=== PATIENT | female | born 1980 | race Two or more races ===

== ENCOUNTER 2021-07-23 00:02 | Emergency (ER) | payer MEDICAID ==
[~2021-07-23] VITALS: Ht 162.6 cm; Wt 72.7 kg
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
[2021-07-23] MEDS ORDERED: MONT10TA32 PO (01:30)
[2021-07-23] MEDS ORDERED: SIMV20TA PO (01:30)
[2021-07-23] MEDS ORDERED: BACL-11 PO (01:30)
[2021-07-23] MEDS ORDERED: TRAZ-251 PO (01:30)
[2021-07-23] MEDS ORDERED: omeprazole PO (01:30)
[2021-07-23] MEDS ORDERED: FLUO40CA26 PO (01:30)
[2021-07-23 01:52] LABS: BASOPHILS % (AUTO) 0.1 % (0-1); EOSINOPHILS % (AUTO) 0.1 % (0-6); HEMATOCRIT 38.7 % (35.0-45.0); HEMOGLOBIN 13.3 g/dl (12.0-16.0); LYMPHOCYTES # (AUTO) 1.4 X10'3 (1.1-4.8); LYMPHOCYTES % (AUTO) 12.2 % (21-51); MEAN CORPUSCULAR HEMOGLOBIN 32.6 PG (27.0-31.0); MEAN CORPUSCULAR HGB CONC 34.3 g/dL (33.0-36.5); MEAN CORPUSCULAR VOLUME 95.1 FL (78-98); MEAN PLATELET VOLUME 7.3 FL (7.4-10.4); MONOCYTES # (AUTO) 0.4 X10'3 (0-0.9); MONOCYTES % (AUTO) 3.4 % (2-12); NEUTROPHILS # (AUTO) 9.9 X10'3 (1.8-7.7); NEUTROPHILS % (AUTO) 84.2 % (42-75); PLATELET COUNT 250 X10'3 (140-440); RED BLOOD COUNT 4.07 X10'6 (4.20-5.60); RED CELL DISTRIBUTION WIDTH 12.6 % (11.5-14.5); WHITE BLOOD COUNT 11.7 X10'3 (4.5-11.0)
[2021-07-23 02:19] LABS: ALANINE AMINOTRANSFERASE 22 U/L (12-78); ALBUMIN/GLOBULIN RATIO 1.1 (1.1-1.5); ALKALINE PHOSPHATASE 67 IU/L (46-116); ANION GAP 18 (8-16); ASPARTATE AMINO TRANSFERASE 23 U/L (10-37); BILIRUBIN,TOTAL 0.5 MG/DL (0.1-1.0); BLOOD UREA NITROGEN 8 MG/DL (7-18); BUN/CREATININE RATIO 12.1 (6.6-38.0); CALCIUM 8.5 MG/DL (8.5-10.1); CHLORIDE 94 MMOL/L (99-107); CREATININE 0.66 MG/DL (0.40-0.90); ETHANOL 0.254 GM/DL (0.0-0.010); GLUCOSE 91 MG/DL (70-104); SODIUM 130 MMOL/L (135-145); TOTAL CARBON DIOXIDE 18.4 MMOL/L (24-32); TOTAL PROTEIN 7.8 G/DL (6.4-8.2); eGFR > 90 ML/MIN
[2021-07-23 02:23] LABS: POTASSIUM 2.8 MMOL/L (3.5-5.1)
--- NOTE | 2021-07-23 02:28 | NUR ---
Received critical K+ level of 2.[address] Urias was made aware.
[2021-07-23] MEDS ORDERED: potassium Cl 20 mEq SR tablet PO ONE ×2 (02:35→05:00)
[2021-07-23] MEDS ORDERED: magnesium oxide 400mg tablet PO ONE (02:35)
[2021-07-23] MEDS ORDERED: baclofen 10mg tablet PO PRN (02:45)
[2021-07-23 02:53] LABS: URINE HCG NEGATIVE (NEG)
[2021-07-23 02:54] LABS: CLARITY,URINE CLEAR (Clear); COLOR,URINE STRAW (Yellow); GLUCOSE, URINE NEGATIVE (Neg); KETONES,URINE NEGATIVE (Neg); LEUKOCYTE ESTERASE ,URINE NEGATIVE (Neg); NITRITES, URINE NEGATIVE (Neg); OCCULT BLOOD,URINE NEGATIVE (Neg); PROTEIN,URINE NEGATIVE (Neg); UA COLLECTION TYPE VOIDED; UROBILINOGEN,URINE 0.2 E.U/dL (0.2-1.0)
[2021-07-23 03:07] LABS: URINE AMPHETAMINE SCREEN NEGATIVE (Neg); URINE BARBITUATE SCREEN NEGATIVE (Neg); URINE BENZODIAZEPINES SCREEN NEGATIVE (Neg); URINE CANNABINOID SCREEN NEGATIVE (Neg); URINE COCAINE SCREEN NEGATIVE (Neg); URINE METHADONE SCREEN NEGATIVE (Neg); URINE OPIATE SCREEN NEGATIVE (Neg); URINE PHENCYCLIDINE SCREEN NEGATIVE (Neg)
--- NOTE | 2021-07-23 03:21 | NUR ---
Packet sent to [facility]
--- NOTE | 2021-07-23 03:49 | NUR ---
The patient is awake and resting on her bed.
[2021-07-23] MEDS: LORazepam 1 MG tablet PO PRN ×2 (04:38→20:08)
--- NOTE | 2021-07-23 04:47 | NUR ---
The patient is tearful and stated that her anxiety was very high. Vital signs HR 127 and BP 138/88. Dr. Urias made aware and orders received
--- NOTE | 2021-07-23 06:22 | NUR ---
The patient appears to be sleeping
[2021-07-23] MEDS: pantoprazole 40mg Tablet.DR PO SCH (07:29)
[2021-07-23] MEDS: FLUoxetine 20mg capsule PO SCH (07:29)
[2021-07-23] MEDS: atorvastatin 10mg tablet PO SCH (07:29)
--- NOTE | 2021-07-23 08:12 | NUR ---
The patient appears to be sleeping
--- NOTE | 2021-07-23 09:00 | NUR ---
[facility] evaluated the patient
--- NOTE | 2021-07-23 10:56 | NUR ---
The patient is resting on her bed but awake
--- NOTE | 2021-07-23 11:35 | NUR ---
[facility] worker at the bedside helping patient to obtain information for residential treatment
--- NOTE | 2021-07-23 13:16 | NUR ---
The patient is speaking with the [facility]
--- NOTE | 2021-07-23 13:19 | NUR ---
The patient has a 9am appointment with [facility].
--- NOTE | 2021-07-23 15:14 | NUR ---
The patient will be discharged tomorrow to the [facility]. She has an intake appointment at 9am. The patient will need to take a taxi ride there.
--- NOTE | 2021-07-23 16:27 | NUR ---
The patient is resting on her bed
--- NOTE | 2021-07-23 19:19 | NUR ---
pt appears depressed, but is friendly for 1:1 assessment. pt did not want to discuss much but did share that she is happy to be leaving tomorrow morning. pt denies having any physical complaints. pt ate most of her dinner and is now writing.
--- NOTE | 2021-07-23 20:41 | NUR ---
pt requested ativan for anxiety. pt is resting, no needs at this time.
[2021-07-23] MEDS ORDERED: montelukast 10mg tablet PO SCH (21:00)
[2021-07-23] MEDS ORDERED: traZODone 50mg tablet PO SCH (21:00)
--- NOTE | 2021-07-23 22:38 | NUR ---
pt appears to be sleeping, no s/s of distress noted.
--- NOTE | 2021-07-23 23:52 | NUR ---
Patient sleeping on right side. No distress observed. Continue to monitor.
--- NOTE | 2021-07-24 01:43 | NUR ---
Patient sleeping on right side. No distress observed. Continue to monitor.
--- NOTE | 2021-07-24 03:46 | NUR ---
Patient sleeping on right side. No distress observed. Continue to monitor.
--- NOTE | 2021-07-24 05:21 | NUR ---
Patient sleeping on left side. No distress observed. Continue to monitor.
[2021-07-24 06:04] VITALS: BP 129/76
[2021-07-24] MEDS: pantoprazole 40mg Tablet.DR PO SCH (07:39)
[2021-07-24] MEDS: FLUoxetine 20mg capsule PO SCH (07:39)
[2021-07-24] MEDS: atorvastatin 10mg tablet PO SCH (07:39)
--- NOTE | 2021-07-24 08:04 | NUR ---
pt was given her belongings, pt will go to [facility] at 9 am today.
== END 2021-07-24 08:38 | disposition home or self-care (01) ==
LOC: ER 00:03
DX: R45.851 Suicidal ideations (principal); Z20.822 Contact with and (suspected) exposure to COVID-19; F10.129 Alcohol abuse with intoxication, unspecified; E87.6 Hypokalemia; Z79.899 Other long term (current) drug therapy; Y90.0 Blood alcohol level of less than 20 mg/100 ml
CPT/HCPCS: 36415; 80053; 80305; 80320; 81003; 81025; 84132; 84443; 85025; 87635; 99285; C9803

== ENCOUNTER 2024-09-01 01:54 | Emergency (ER) | payer MEDICAID ==
[~2024-09-01] VITALS: Ht 170.2 cm; Wt 63.0 kg
[~2024-09-01 01:54] MED LIST: BACL-11 PO; FLUO40CA26 PO; MONT-40 PO; SIMV-342 PO; TRAZ-251 PO; omeprazole PO
[2024-09-01 03:21] LABS: URINE HCG NEGATIVE (NEG)
[2024-09-01 03:22] LABS: BILIRUBIN,URINE NEGATIVE (Neg); CLARITY,URINE CLEAR (Clear); COLOR,URINE YELLOW (Yellow); GLUCOSE, URINE NEGATIVE (Neg); KETONES,URINE NEGATIVE (Neg); LEUKOCYTE ESTERASE ,URINE NEGATIVE (Neg); NITRITES, URINE NEGATIVE (Neg); OCCULT BLOOD,URINE LARGE (Neg); PROTEIN,URINE NEGATIVE (Neg); UROBILINOGEN,URINE 0.2 E.U/dL (0.2-1.0)
[2024-09-01 03:28] LABS: UA COLLECTION TYPE CLN CATCH MIDSTREAM
[2024-09-01] MEDS: diphenhydrAMINE 25mg capsule PO ONE (03:32)
[2024-09-01] MEDS: LORazepam 1 MG tablet PO ONE (03:32)
[2024-09-01 03:38] LABS: BACTERIA,URINE FEW /HPF (Neg); SQUAMOUS EPITHELIAL CELL,UR FEW /LPF (FEW); WBC,URINE 0-4 /HPF (0-4)
[2024-09-01 03:43] LABS: URINE AMPHETAMINE SCREEN NEGATIVE (Neg); URINE BARBITUATE SCREEN NEGATIVE (Neg); URINE BENZODIAZEPINES SCREEN NEGATIVE (Neg); URINE CANNABINOID SCREEN NEGATIVE (Neg); URINE COCAINE SCREEN NEGATIVE (Neg); URINE METHADONE SCREEN NEGATIVE (Neg); URINE OPIATE SCREEN NEGATIVE (Neg); URINE PHENCYCLIDINE SCREEN NEGATIVE (Neg)
[2024-09-01] MEDS: haloperidol lactate 5mg/ml inj IM ONE (04:17)
[2024-09-01] MEDS: LORazepam 2 mg/ml vial IM ONE (04:17)
[2024-09-01] MEDS: diphenhydrAMINE 50 mg/ml inj IM ONE (04:17)
[2024-09-01] MEDS ORDERED: DULO60CA65 PO (04:45)
[2024-09-01 04:58] LABS: ALBUMIN 3.9 G/DL (3.4-5.0); ANION GAP 15 (8-16); BLOOD UREA NITROGEN 7 MG/DL (7-18); BUN/CREATININE RATIO 14.6 (10.0-20.0); CALCIUM 8.3 MG/DL (8.5-10.1); CHLORIDE 96 MMOL/L (99-107); CREATININE 0.48 MG/DL (0.40-0.90); ETHANOL 163 MG/DL (<10); GLUCOSE 81 MG/DL (70-104); POTASSIUM 3.5 MMOL/L (3.5-5.1); SODIUM 132 MMOL/L (135-145); THYROID STIMULATING HORMONE 1.55 ulU/ml (0.34-4.50); TOTAL CARBON DIOXIDE 21.2 MMOL/L (24-32); eCRCL 148 ML/MIN; eGFR > 90 ML/MIN
[2024-09-01 08:00] VITALS: BP 116/71; PULSE 99; TEMP 98.4; O2SAT 99
[2024-09-01 08:10] VITALS: RESP 16
[2024-09-01 08:31] LABS: BASOPHILS % (AUTO) 0.2 % (0-1); EOSINOPHILS % (AUTO) 0.5 % (0-6); HEMATOCRIT 35.3 % (35.0-45.0); HEMOGLOBIN 11.9 g/dl (12.0-16.0); LYMPHOCYTES # (AUTO) 2.5 X10'3 (1.1-4.8); LYMPHOCYTES % (AUTO) 34.5 % (21-51); MEAN CORPUSCULAR HEMOGLOBIN 32.3 PG (27.0-31.0); MEAN CORPUSCULAR HGB CONC 33.8 g/dL (33.0-36.5); MEAN CORPUSCULAR VOLUME 95.7 FL (78-98); MEAN PLATELET VOLUME 6.3 FL (7.4-10.4); MONOCYTES # (AUTO) 0.5 X10'3 (0-0.9); MONOCYTES % (AUTO) 6.5 % (2-12); NEUTROPHILS # (AUTO) 4.2 X10'3 (1.8-7.7); NEUTROPHILS % (AUTO) 58.3 % (42-75); PLATELET COUNT 256 X10'3 (140-440); RED BLOOD COUNT 3.68 X10'6 (4.20-5.60); RED CELL DISTRIBUTION WIDTH 13.1 % (11.5-14.5); WHITE BLOOD COUNT 7.2 X10'3 (4.5-11.0)
[2024-09-01] MEDS: duloxetine 30mg CAPSULE.DR PO SCH (08:34)
[2024-09-01] MEDS: FLUoxetine 20mg capsule PO SCH (08:34)
[2024-09-01 13:59] LABS: ALANINE AMINOTRANSFERASE 21 U/L (12-78); ALBUMIN/GLOBULIN RATIO 1.1 (1.1-1.5); ALKALINE PHOSPHATASE 57 IU/L (46-116); ASPARTATE AMINO TRANSFERASE 21 U/L (10-37); BILIRUBIN,DIRECT 0.1 MG/DL (0-0.3); BILIRUBIN,TOTAL 0.3 MG/DL (0.1-1.0); TOTAL PROTEIN 7.6 G/DL (6.4-8.2)
[2024-09-01] MEDS ORDERED: traZODone 50mg tablet PO SCH (21:00)
== END 2024-09-01 15:02 | disposition home or self-care (01) ==
LOC: ER 01:56
DX: R45.851 Suicidal ideations (principal); Z20.822 Contact with and (suspected) exposure to COVID-19; F32.A Depression, unspecified; F41.9 Anxiety disorder, unspecified; Z88.8 Allergy status to other drugs, medicaments and biological substances; Z79.899 Other long term (current) drug therapy
CPT/HCPCS: 36415; 80048; 80076; 80305; 80320; 81001; 81025; 84443; 85025; 87811; 96372; 99285; J1200; J1630; J2060; Q0163